=== PATIENT | female | born 1995 | race Two or more races ===

== ENCOUNTER 2019-08-05 23:35 | Emergency (ER) | payer OTHER ==
[~2019-08-05] VITALS: Ht 152.4 cm; Wt 68.6 kg
[2019-08-06] MEDS ORDERED: hydrOXYzine 25 MG TAB PO STA (01:16)
[2019-08-06] MEDS ORDERED: HYDR-3363 PO (01:20)
[2019-08-06 01:57] VITALS: BP 119/78
== END 2019-08-06 01:58 | disposition home or self-care (01) ==
LOC: M ED 23:35
DX: L50.1 Idiopathic urticaria (principal)

== ENCOUNTER 2021-02-08 15:46 | Emergency (ER) | payer OTHER ==
[~2021-02-08] VITALS: Ht 149.9 cm; Wt 72.0 kg
[~2021-02-08 15:46] MED LIST: HYDR-3363 PO
[2021-02-08] MEDS ORDERED: ANUS2.5C2 TOP (17:02)
[2021-02-08 17:06] VITALS: BP 132/84
== END 2021-02-08 17:08 | disposition home or self-care (01) ==
LOC: M ED 15:46
DX: K64.8 Other hemorrhoids (principal)

== ENCOUNTER → 2021-02-12 | Outpatient (CLI) | payer OTHER ==
[~2021-02-12] MED LIST changes: +ANUS2.5C2 TOP
--- NOTE | 2021-02-12 10:40 | PFTRPT ---
Height: 59.00 Inches Weight: 155.00 Lbs BSA: 1.65 Diagnosis: DYSPNEA DATE: 02/12/2021 ORDERING PHYSICIAN: Jarett Urena Pre and post bronchodilator studies have excellent technical quality. Forced vital capacity is normal. FEV1 is in proportion. Obstructive index is therefore normal. Expiratory limit of the flow-volume loop is normal. No significant bronchodilator response is identified. Total lung capacity is normal. Residual volume is in proportion. Diffusing capacity is normal. No hemoglobin available for correction. Airway resistance and conductance are normal. IMPRESSION: Normal study. MTDD
== END ==
LOC: M CARPUL 09:53
PROVIDERS: ATTEND Physician Assistant
DX: R06.00 Dyspnea, unspecified (principal)

== ENCOUNTER → 2021-03-05 | Outpatient (CLI) | payer OTHER ==
[~2021-03-05] MED LIST changes: +METHACHOLINE KIT (J7674) INH ONE
--- NOTE | 2021-03-05 09:12 | PFTRPT ---
Height: 59.00 Inches Weight: 155.00 Lbs BSA: 1.65 Diagnosis: DYSPNEA DATE: 03/05/2021 ORDERED BY: Jarett Urena. QUALITY: Study of excellent technical quality. PROCEDURE: Under protocol, methacholine was administered. At a dose of 10 mg or 63.875 CDUs, a 34% decline in the FEV1 was noted. PC of 4.15 is significant. Flow rates did return to baseline post bronchodilator administration. IMPRESSION: Positive methacholine challenge study. MTDD
== END ==
LOC: M CARPUL 08:14
PROVIDERS: ATTEND Physician Assistant
DX: R06.00 Dyspnea, unspecified (principal)
CPT/HCPCS: 94070; J7674